=== PATIENT | male | born 1970 | race Caucasian/White ===

== ENCOUNTER → 2018-06-10 | Day surgery (SDC) | payer OTHER ==
[~2018-06-10] VITALS: Ht 175.3 cm; Wt 83.9 kg
[~2018-06-10] MED LIST: IBUPROFEN800 M1 PO
--- NOTE | 2018-06-10 07:23 | Operative Report ---
Operative/Inv Procedure Report Surgery Date: 06/10/18 Name of Procedure: Left distal biceps repair Pre-Operative Diagnosis: Left distal biceps rupture Post-Operative Diagnosis: Left distal biceps rupture,complete Estimated Blood Loss: scant Surgeon/Fagot Maker: Lili VEGA,Yohannes Condon PA-C Anesthesia: laryngeal mask airway, block Implants: Arthrex distal biceps button and 7x10mm interference screw Urine Output: Not recorded Drains: None Specimens: None Tourniquet: 66min at 250mmHg Complications: None Condition: Stable Operative Indication: Irineo Miramontes is a 47 year-old right-hand dominant male who sustained a left complete distal biceps tendon rupture on 05/25/18. He was working on a jeep; forcefully pulled on a part with tearing sensation in the left anterior elbow. He presented to emergency department for evaluation. X-rays were unremarkable, however an MRI of the left elbow was then ordered and showed a complete rupture of the left distal biceps tendon with retraction. After discussing the risks, benefits, and alternatives, the patient is opted to proceed with left distal biceps tendon repair. Operative/Procedure Note Note: Irineo Miramontes arrived at [facility] on 06/10/2018. He was met in the preoperative area, where his operative extremity is marked with medical history is reviewed. A regional block was performed by the anesthesia service. The patient was then taken to the operating room and placed supine on the operating table. SCDs were applied to bilateral lower extremities. A timeout procedure was performed, in which the patient, operative extremity, and planned procedure were verified. The patient was induced under general anesthesia and IV cefazolin was provided for antibiotic prophylaxis. A nonsterile tourniquet was applied to the left upper arm, and left lower extremity was prepped and draped in the usual sterile fashion. The left upper extremity was supported by a dedicated hand table. Following surgical pause, the left upper extremity was exsanguinated using an Esmarch bandage and the tourniquet raised to 250 mmHg. Flexion crease was identified in the anterior elbow, and a horizontal incision was made approximately 3-1/2 cm distal to the flexion crease. Prior to the incision, mini C-arm was used to verify the location of the radial tuberosity. The incision was taken through the skin, and careful dissection was then carried out using Metzenbaum scissors. The lateral antebrachial cutaneous nerve was not identified during the dissection, however care was taken to avoid excessive retraction on the lateral structures to minimize the risk of injury or stretch. Following dissection down to the overlying fascia, blunt dissection was performed proximally to identify the torn biceps tendon. This was carefully debrided from the surrounding soft tissues and adhesions. The tendon was identified and carefully retracted using Allis clamp. The distal tendon was debrided and a FiberWire whipstitch was placed with approximately 4 cm of suture in the distal tendon. This was carefully clamped. We then proceeded with dissection down to the radial tuberosity. The large veins in the anterior elbow were carefully mobilized. The interval between the brachioradialis and the pronator teres was identified. The forearm was held in supination to minimize risk to the posterior interosseous nerve. A small tract was identified, consistent with the torn biceps tendon path. Small Cyndy retractors were placed medial and lateral to the radial tuberosity to assist with visualization. Care was taken to gently retract the surrounding soft tissues and to mobilize nerves and vessels when possible. A small C-wire was placed in the radial tuberosity and the mini C arm was used to verify our location. Once confirmed, a 3.2 mm spade-tip drill bit was placed in the radial tuberosity and passed bicortical. This was overdrilled with a 7.5 mm reamer for a unicortical socket. This corresponded to the 7 mm diameter of the bicipital tendon. The sutures stitched into the biceps tendon were then threaded through the distal biceps button; this was passed through the socket and drill hole in the radial tuberosity, and deployed on the posterior aspect of the radius. Again, the forearm was held in supination. The sutures of the distal biceps tendon were then carefully shuttled back and forth to pull the tendon into socket created in the bicipital tuberosity. There was some tension noted, however the tendon was easily placed into the socket with the arm in approximately 45 of flexion. Once the tendon was appropriately positioned, a 7 x 10 mm interference screw was then placed between the socket smith and the tendon. The sutures of the biceps tendon were then passed through the tendon again and tied into position. This provided excellent fixation of the distal biceps back to the radial tuberosity. The arm was gently extended to approximately 30 shy of full. Fluoroscopy was used to confirm deployment of the button and its position on the radial tuberosity. The wound was then copiously irrigated with normal saline. The tourniquet was released after 66 minutes. Hemostasis was obtained. The incision was then closed using 2-0 Vicryl for the subcutaneous layer, followed by 3-0 running Prolene for skin. The incision was reinforced with Steri-Strips. The wound was dressed with sterile Xeroform, gauze, and sterile Webril. A long posterior fiberglass splint was placed with the elbow in 90 of flexion and secured with an Silvino bandage. The patient was then extubated and taken from the operating room to the postanesthesia care unit in stable condition.
== END ==
LOC: STS 02:13
DX: S46.212A Strain of muscle, fascia and tendon of other parts of biceps, left arm, initial encounter (principal); X50.0XXA Overexertion from strenuous movement or load, initial encounter; Z87.820 Personal history of traumatic brain injury
CPT/HCPCS: J0690; J2250